=== PATIENT | female | born 1980 | race Caucasian/White ===

== ENCOUNTER → 2020-09-28 01:20 | Outpatient (CLI) | payer OTHER, SELFPAY ==
[2020-09-28 17:12] LABS: SARS-CoV-2 RNA PCR Negative
== END ==
PROVIDERS: Visit Provider Obstetrics & Gynecology
DX: Z01.812 Encounter for preprocedural laboratory examination (principal); Z20.822 Contact with and (suspected) exposure to COVID-19
CPT/HCPCS: C9803; U0003; U0005

== ENCOUNTER 2020-10-01 00:38 | Day surgery (SDC) | payer OTHER, SELFPAY ==
[2020-09-24 14:33] VITALS: BMI 31.4
--- NOTE | 2020-10-01 06:53 | PM.HPGS ---
History of Present Illness History of Present Illness Consent: Risks, benefits, and alternatives have been discussed and questions answered. Patient agrees to proceed with procedure. Chief complaint: cervical intraepithelial neoplasia grade 2 Narrative: Bridget Garrido is a 40 year old female cervical intraepithelial neoplasia grade 2 A. CERVIX BIOPSY: HIGH-GRADE MODERATE SQUAMOUS DYSPLASIA (STACY II). THE TRANSFORMATION ZONE IS NOT REPRESENTED. B. ENDOCERVICAL BIOPSY: DETACHED FRAGMENT OF HIGH-GRADE DYSPLASTIC SQUAMOUS MUCOSA (STACY II). Counseled pt on results and need for LEEP with Dr. Garibay. Review of Systems Review of Systems: All systems reviewed & are unremarkable except as noted in HPI and below Constitutional: Constitutional: Reports no additional constitutional complaints Eyes: Eyes: Reports no additional eye complaints ENT: Reports system reviewed and no additional complaints, except as documented Cardiovascular: Cardiovascular: Reports no additional cardiovascular complaints Respiratory: Respiratory: Reports no additional respiratory complaints Gastrointestinal: Gastrointestinal: Reports no additional gastrointestinal complaints Genitourinary: Genitourinary: Reports no additional female genitourinary complaints Musculoskeletal: Musculoskeletal: Reports no additional musculoskeletal complaints Integumentary/Breasts: Skin/Breast: Reports system reviewed and no additional complaints, except as docu Neurologic: Reports system reviewed and no additional complaints, except as documented Psychiatric: Psychiatric: Reports no additional psychiatric complaints Endocrine: Endocrine: Reports no additional endocrine complaints Hematologic/Lymphatic: Hematologic/Lymphatic: Reports no additional hematologic/lymphatic complaints Allergic/Immunologic: Allergic/Immunologic: Reports no additional allergic/immunologic complaints [facility] Past Medical History Medical History STACY III (cervical intraepithelial neoplasia grade III) with severe dysplasia Fibrocystic breast Fibromyalgia Obesity Psoriatic arthritis Smoker Surgical History Surgical History (Updated 10/01/20 @ 06:59 by Tramaine Garibay MD) History of section History of section History of cholecystectomy Family History Family History (Updated 10/01/20 @ 07:00 by Tramaine Garibay MD) Other Acute myocardial infarction Diabetes mellitus Heart disease Hypertension Kidney carcinoma Lung cancer Lupus Social History Social History (Updated 10/01/20 @ 07:01 by Tramaine Garibay MD) Smoking packs per day: 0.75 Smoking cigarettes per day: 15.0 Years smoked: 20 Smoking pack-years: 15.00 Smoking status: Current every day smoker Alcohol use details: SOCIAL DRINKER IN PAST Substance use: never Living arrangements: with family Additional living arrangements comments: CHILDREN Occupation/Education: unemployed Gender identity (if verbalized by the patient): Female Sexual Orientation (if Verbalized by the Patient): Straight or Heterosexual Spiritual care concerns: No Agree to blood products: Yes Meds Home Medications and Allergies Home Medications Medication Instructions Recorded Confirmed Type folic acid 1 mg PO DAILY 09/24/20 09/24/20 History methotrexate sodium 20 mg PO WEEKLY 09/24/20 09/24/20 History Allergies Allergy/AdvReac Type Severity Reaction Status Date / Time No Known Allergies Allergy Unverified 09/24/20 14:30 Exam Const: General: cooperative, healthy appearing, comfortable, no acute distress, well developed, alert, awake and Physically active HENMT: Head: normal to inspection Eyes: General: appearance normal, both eyes and all related structures Neck: Neck: normal visual inspection and full ROM Chest: Chest palpation & inspection: normal inspection of the chest Breast/axilla inspection: normal inspection of the breasts Resp: Effort & Inspecti
--- NOTE | 2020-10-01 07:03 | WPDHPUPDATE1 ---
History and Physical Update Update Date/Time: 10/01/20 07:03 History and Physical has been reviewed, including an updated exam of the patient. There are NO changes in the patient's condition. Risks, benefits, and alternatives have been discussed and questions answered. Patient agrees to proceed with procedure. cervical intraepithelial neoplasia grade 2 A. CERVIX BIOPSY: HIGH-GRADE MODERATE SQUAMOUS DYSPLASIA (STACY II). THE TRANSFORMATION ZONE IS NOT REPRESENTED. B. ENDOCERVICAL BIOPSY: DETACHED FRAGMENT OF HIGH-GRADE DYSPLASTIC SQUAMOUS MUCOSA (STACY II). Counseled pt on results and need for LEEP with Dr. Garibay.
[2020-10-01] MEDS: ACETAMINOPHEN 500 MG TABLET 1000 MG PO (08:47)
[2020-10-01] MEDS: LACTATED RINGERS 1,000 ML 30 ML IV CONT (08:54)
[2020-10-01 08:57] VITALS: BP 107/59; PULSE 74; TEMP 36.9; O2SAT 100
--- NOTE | 2020-10-01 09:00 | WPDANESEPPF ---
Anes - Initial Pre Proc Eval Procedure: Operation Date: 10/01/20 10:00 Proposed Procedures p Cervical Loop Electrical Excision Procedure - Tramaine Garibay MD Date/Time: 10/01/20 09:00 Surgeon: Tramaine Garibay MD Pre Op Diagnosis: cervical intraepithelial neoplasia grade 2 Patient Data Age: 40 Gender: F Height: 1.7 m Weight: 91 kg Allergies Allergy/AdvReac Type Severity Reaction Status Date / Time No Known Allergies Allergy Unverified 10/01/20 08:56 Home Medications Medication Instructions Recorded Confirmed Type folic acid 1 mg PO DAILY 09/24/20 09/24/20 History methotrexate sodium 20 mg PO WEEKLY 09/24/20 10/01/20 History Patient hx anesthesia problems: none Family hx anesthesia problems: none PMFSH Past Medical History Medical History STACY III (cervical intraepithelial neoplasia grade III) with severe dysplasia Fibrocystic breast Fibromyalgia Obesity Psoriatic arthritis Smoker Surgical History Surgical History (Updated 10/01/20 @ 06:59 by Tramaine Garibay MD) History of section History of section History of cholecystectomy Family History Family History (Updated 10/01/20 @ 07:00 by Tramaine Garibay MD) Other Acute myocardial infarction Diabetes mellitus Heart disease Hypertension Kidney carcinoma Lung cancer Lupus Social History Social History (Updated 10/01/20 @ 07:01 by Tramaine Garibay MD) Smoking packs per day: 0.75 Smoking cigarettes per day: 15.0 Years smoked: 20 Smoking pack-years: 15.00 Smoking status: Current every day smoker Alcohol use details: SOCIAL DRINKER IN PAST Substance use: never Living arrangements: with family Additional living arrangements comments: CHILDREN Occupation/Education: unemployed Gender identity (if verbalized by the patient): Female Sexual Orientation (if Verbalized by the Patient): Straight or Heterosexual Spiritual care concerns: No Agree to blood products: Yes Anes - Eval Final PreProcedure Day of Procedure 10/01/20 09:00 Patient weight: obese Heart: regular rate and rhythm Lungs: clear to auscultation Airway: Mallampati scale class II Neurological: alert and oriented Last oral intake: >/= 8 hours ASA classification: II Emergent: no Anesthetic plan: proceed Anesthesia type and monitoring: general GIVS and standard monitoring Informed Consent: The patient's anesthetic plan and its attendant risks and benefits were discussed with the patient/family/POA. Questions were solicited and answers provided to the satisfaction of the patient/family/POA.
--- NOTE | 2020-10-01 10:13 | WPDHPUPDATE1 ---
History and Physical Update Update Date/Time: 10/01/20 10:13 History and Physical has been reviewed, including an updated exam of the patient. There are NO changes in the patient's condition. Risks, benefits, and alternatives have been discussed and questions answered. Patient agrees to proceed with procedure. PATIENT HAS IUD REMOVAL OF IUD TO BE PERFORMED AT TIME OF LEEP
[2020-10-01] MEDS: ceFAZolin 2 GM/D5W 50 ML 2 GM/50 ML BAG IVPB (10:17)
[2020-10-01] MEDS: KETOROLAC 30 MG/ML VIAL (*BKC) IV PUSH (10:41)
[2020-10-01 11:06] VITALS: BP 86/55; PULSE 80; RESP 16; O2SAT 95
[2020-10-01 11:30] VITALS: BP 107/61; PULSE 63; RESP 16
--- NOTE | 2020-10-01 11:46 | P.OP_ITS ---
Procedure Note - Detailed Date of Procedure 10/01/20 Pre-op Diagnosis cervical intraepithelial neoplasia grade 3, HGSIL surveillance of iud Post-op Diagnosis same (cervical intraepithelial neoplasia grade 3, surveillance of iud, HGSIL) Procedure Performed LEEP loop electrosurgical excision procedure removal of iud Surgeon Tramaine Garibay MD [employer] Setter Operator Norma Anesthesia MAC Indications CIN3 HGSIL, IUD in place Findings endocervical disease abnormal staining areas endocervix and transition zone normal cervix normal paracervical region hemostasis excellent with electrode and with Monsel's solution antibiotic prophylaxis Ancef 2 g VTE prevention SCDs Procedure performed OR room 3. Patient taken to recovery room stable condition Family informed the operative findings Description of Procedure informed consent obtained patient taken to the operating room given anesthesia intravenous and sedation and placed in the dorsal lithotomy position and prepped and draped in usual sterile fashion a time-out was performed. Heavy weighted speculum was placed into the vault vagina anterior retractor place sutures were placed at 3 and 9:00 a.m. on cervix for hemostasis 0 Vicryl. Ascetic acid wash of the cervix followed by Lugol staining revealed the nonstaining areas in the endocervix. A large loop electrosurgical excision procedure was then performed followed by a medium loop electrosurgical excision procedure giving an ectocervical and endocervical LEEP specimen respectively. The ball electrode was used to for hemostasis along the remaining cervix and Monsel's solution was applied. Hemostasis was excellent procedure was terminated counts correct complications none both specimen sent to pathology Estimated Blood Loss 20 IV Fluids 1,000 Urine Output -500.0 Drains No Packing No Pathology yes ( ectocervix LEEP and endocervix LEEP specimen) Complications None Condition stable Disposition same day
[2020-10-01 12:00] VITALS: BP 101/65; PULSE 56; RESP 18
--- NOTE | 2020-10-01 12:00 | SUR.PHASEII ---
notified Dr. Garibay that patient is requesting prescription strength pain medication for discharge. currently rating pain 8/10. Dr. Garibay states he will come to write script when he is finished with current patient.
[2020-10-01] MEDS: oxyCODONE HCL (*CRX) 5 MG TAB IR PO (12:06)
[2020-10-01 12:30] VITALS: BP 98/56; PULSE 63; RESP 18
== END 2020-10-01 12:52 | disposition home or self-care (01) ==
PROVIDERS: PCP Physician Assistant; Visit Provider Obstetrics & Gynecology
PROC: 0UBC7ZZ Excision of Cervix, Via Natural or Artificial Opening (ICD-10-PCS; CPT 57522; principal; 2020-10-01 10:00)
DX: N87.1 Moderate cervical dysplasia (principal); Z97.5 Presence of (intrauterine) contraceptive device; M79.7 Fibromyalgia; F17.210 Nicotine dependence, cigarettes, uncomplicated; E66.9 Obesity, unspecified; Z68.31 Body mass index [BMI] 31.0-31.9, adult
CPT/HCPCS: 57522; 88305; A9270; J0690; J1885; J2250; J2704; J3010; J7120

== ENCOUNTER 2021-09-25 13:15 | Emergency (ER) | payer OTHER, SELFPAY ==
--- NOTE | ~2021-09-25 | US_ITS ---
EXAMINATION: US breast RT limited DATE: 09/25/2021 15:54 INDICATION: Right breast pain, warmth and redness, drainage. TECHNIQUE: Grayscale and Doppler ultrasound images of the right breast were obtained. COMPARISON: None. FINDINGS: Multiple dilated tubular structures in the subareolar tissues. No focal fluid collection. A 12:00 there is a tubular compressible structure that corresponds with an erythematous linear area on the skin. IMPRESSION: 1. No sonographic finding to suggest abscess. 2. Dilated subareolar ducts. 3. Dilated superficial vein without demonstrable thrombus, may reflect hyperemia or phlebitis. Reviewed, dictated and finalized at location K. IMPRESSION: 1. No sonographic finding to suggest abscess. 2. Dilated subareolar ducts. 3. Dilated superficial vein without demonstrable thrombus, may reflect hyperemi a or phlebitis.
[2021-09-25 13:20] VITALS: BP 144/80; PULSE 86; RESP 18; TEMP 36.6; O2SAT 98
--- NOTE | 2021-09-25 14:02 | ED.GENADULT ---
HPI - General Adult General Chief complaint: Unspecified <Casandra Recinos PA-C - Last Filed: 09/25/21 19:09> Stated complaint: right breast pain <MARCO Sheehan Last Filed: 09/25/21 19:09> Time Seen by Provider: 09/25/21 13:26 <Casandra Recinos PA-C - Last Filed: 09/25/21 19:09> Source: patient <MARCO Sheehan Last Filed: 09/25/21 19:09> Mode of arrival: ambulatory <MARCO Sheehan Last Filed: 09/25/21 19:09> Limitations: no limitations <MARCO Sheehan Last Filed: 09/25/21 19:09> History of Present Illness HPI narrative: Patient is a 41-year-old female who presents to the ED with report of right breast redness, pain, nipple drainage. Patient reports she first noticed pain and a stripe of redness encircling around her breast yesterday. She also began to notice mild warmth of her right breast. Today, symptoms persisted and worsened and she noticed purulent drainage from the left side of her nipple, which prompted her to come to the ED. She does note she had her right nipple piercing 20 years ago but she is has not had a piercing in since that time. Patient denies any fever, chills, nausea, vomiting. She has not taken anything for symptoms today. Patient has never had a mammogram. <Casandra Recinos PA-C - Last Filed: 09/25/21 19:09> Related Data Home medications: Home Medications Medication Instructions Recorded Confirmed folic acid 1 mg tablet 1 mg PO DAILY 09/24/20 09/24/20 methotrexate sodium 2.5 mg tablet 20 mg PO WEEKLY 09/24/20 10/01/20 <MARCO Sheehan Last Filed: 09/25/21 19:09> Allergies/adverse reactions: Allergies Allergy/AdvReac Type Severity Reaction Status Date / Time No Known Allergies Allergy Verified 09/25/21 13:47 <MARCO Sheehan Last Filed: 09/25/21 19:09> Review of Systems Review of Systems: CONSTITUTIONAL: Denies fever, chills, or sweats. RESPIRATORY: Denies dyspnea. BREAST: Reports pain R breast, nipple discharge. GASTROINTESTINAL: Denies abdominal pain, nausea, vomiting. SKIN: Reports warmth and stripe of redness to R breast. <Casandra Recinos PA-C - Last Filed: 09/25/21 19:09> All systems reviewed & are unremarkable except as noted in HPI and below <Casandra Recinos PA-C - Last Filed: 09/25/21 19:09> PMFSH Past Medical History Medical History: Medical History STACY III (cervical intraepithelial neoplasia grade III) with severe dysplasia Fibrocystic breast Fibromyalgia Obesity Psoriatic arthritis Smoker <Casandra Recinos PA-C - Last Filed: 09/25/21 19:09> Surgical History Surgical History: Surgical History History of section History of section History of cholecystectomy <Casandra Recinos PA-C - Last Filed: 09/25/21 19:09> Family History Family History: Family History (Updated 10/01/20 @ 07:00 by Tramaine Garibay MD) Other Acute myocardial infarction Diabetes mellitus Heart disease Hypertension Kidney carcinoma Lung cancer Lupus <Casandra Recinos PA-C - Last Filed: 09/25/21 19:09> Social History Social History: Social History Smoking packs per day: 0.75 Smoking cigarettes per day: 15.0 Years smoked: 20 Smoking pack-years: 15.00 Smoking status: Current every day smoker Alcohol use details: SOCIAL DRINKER IN PAST Substance use: never Additional living arrangements comments: CHILDREN Gender identity (if verbalized by the patient): Female Sexual Orientation (if Verbalized by the Patient): Straight or Heterosexual Spiritual care concerns: No Agree to blood products: Yes <Casandra Recinos PA-C - Last Filed: 09/25/21 19:09> Exam Narrative: GENERAL: Well appearing, well-nourished, non-toxic, in no acute distress. HEAD: Normocephalic, atraumatic. NECK: Supple. No adenopathy, no masses. RESP
[2021-09-25 14:34] LABS: Basophils Absolute Auto 0.1 K/mm3 (0.0-0.1); Basophils Percent Auto 0.6 % (0.2-1.2); Eosinophils Absolute Auto 0.2 K/mm3 (0-0.3); Eosinophils Percent Auto 1.5 % (0-4.4); Hematocrit 38.5 % (37.0-47.0); Hemoglobin 11.9 g/dL (12.0-15.0); Immature Granulocyte Absolute 0.06 K/mm3 (0.00-0.031); Immature Granulocyte Percent A 0.5 % (0-0.5); Lymphocytes Absolute Auto 2.34 K/mm3 (0.9-3.2); Lymphocytes Percent Auto 21.2 % (18.3-44.2); Mean Corpuscular HGB Conc 30.9 g/dl (32-36); Mean Corpuscular Hemoglobin 26.6 pg (26-34); Mean Corpuscular Volume 85.9 fl (80-100); Mean Platelet Volume 9.1 fl (7.4-10.4); Monocytes Absolute Auto 0.6 K/mm3 (0.1-0.6); Monocytes Percent Auto 5.8 % (2.6-8.5); Neutrophils Absolute Auto 7.8 K/mm3 (1.3-6.7); Neutrophils Percent Auto 70.4 % (45.5-73.1); Platelet Count Result 416 k/mm3 (150-375); Red Blood Count 4.48 M/mm3 (4.2-5.4); Red Cell Distribution Width 14.1 % (11.5-14.5)
[2021-09-25] MEDS: ONDANSETRON HCL ODT 4 MG TABLET PO (14:40)
[2021-09-25 14:51] LABS: Alanine Aminotransferase 23 U/L (6-35); Albumin Level 3.5 g/dL (3.5-5.1); Alkaline Phosphatase 88 U/L (38-126); Anion Gap 6 mmol/L (8-16); Aspartate Amino Transferase 28 U/L (14-36); Bilirubin,Total 0.2 mg/dL (0.2-1.3); Blood Urea Nitrogen 5 mg/dL (7-17); Carbon Dioxide 26 mmol/L (22-30); Chloride 105 mmol/L (98-107); Estimated CRCL calculation 131 ml/min; Estimated Glomerular Filt Rate > 60; Glucose 94 mg/dL (65-110); Potassium 3.7 mmol/L (3.4-5.0); Sodium 137 mmol/L (137-145)
[2021-09-25] MEDS: CLINDAMYCIN HCL 150 MG CAP 450 MG PO (18:35)
[2021-09-25 18:38] VITALS: BP 124/72; PULSE 72; RESP 18; O2SAT 100
== END 2021-09-25 18:39 | disposition home or self-care (01) ==
PROVIDERS: Physician Assistant; Emergency Provider Emergency Medicine; PCP Physician Assistant
DX: N61.0 Mastitis without abscess (principal); I80.8 Phlebitis and thrombophlebitis of other sites; N60.19 Diffuse cystic mastopathy of unspecified breast; D06.9 Carcinoma in situ of cervix, unspecified; L40.50 Arthropathic psoriasis, unspecified; E66.9 Obesity, unspecified; Z68.35 Body mass index [BMI] 35.0-35.9, adult; F17.210 Nicotine dependence, cigarettes, uncomplicated
CPT/HCPCS: 36415; 76642; 80053; 85025; 87070; 87075; 87205; 99284; A9270